=== PATIENT | male | born 1975 | race Caucasian/White ===

== ENCOUNTER 2018-05-17 23:35 | Emergency (ER) | payer SELFPAY ==
[2018-05-17] MEDS ORDERED: IBUPROFEN 800 MG TAB PO ONE (23:55)
[2018-05-17] MEDS ORDERED: BUPIVACAINE 0.5% INJ 50ML VIAL INFIL ONE (23:55)
[2018-05-17] MEDS ORDERED: PENICILLIN VK 250 MG TAB PO SCH (23:55)
--- NOTE | 2018-05-17 23:56 | ER Report ---
History and Physical Time Seen By MD: 23:45 Hx. of Stated Complaint: PATIENT COMPLAINS OF RIGHT EAR PAIN THAT HE STATES IS CAUSED FROM A TOOTH ABCESS. PAIN STARTED APPROX 3 HOURS AGO HPI/ROS CHIEF COMPLAINT: Tooth Pain HISTORY OF PRESENT ILLNESS: Patient complains of sudden onset tooth pain this afternoon. He did not bite or chew anything or break dentition. He believes this is dental abscesses he has had multiple in past. He has poor dentition and is tobacco user. He does not currently have a dentist. He has had no fevers or chills. He has severe pain in right lower posterior mandible. He has tried ibuprofen without relief. REVIEW OF SYSTEMS: Constitutional: No fever, no chills. Eyes: No discharge. ENT: above Cardiovascular: No chest pain, no palpitations. Respiratory: No cough, no shortness of breath. Gastrointestinal: No abdominal pain, no vomiting. Musculoskeletal: No back pain. Skin: No rashes. Neurological: headache due to radiation of pain to r ear, r side of head Remainder of the 14 system rev: Yes Allergies: Coded Allergies: No Known Drug Allergies (Unverified , 05/17/18) Home Meds Active Scripts Penicillin V Potassium 500 Mg Tab (PENICILLIN V POTASSIUM 500 MG TAB) 500 Mg Tablet, 500 MG PO BID for 7 Days, #14 TAB Prov:GILLES ROTHMAN MD 05/18/18 Constitutional Vital Sign - Last 24 Hours 05/17/18 05/17/18 05/18/18 05/18/18 23:38 23:38 00:00 00:05 Pulse 99 Resp 17 B/P (MAP) 129/106 129/106 (114) 112/83 (93) Pulse Ox 92 97 05/18/18 05/18/18 00:30 00:40 Pulse 79 B/P (MAP) 105/83 (90) Pulse Ox 92 Physical Exam General Appearance: The patient is alert, has no immediate need for airway protection and no signs of toxicity. Eyes: Pupils equal and round no pallor or injection. ENT, Mouth: Mucous membranes are moist. Poor dentition; multiple missing teeth. Tooth #31 is necrotic and tender to percussion. No surrounding fluctuance. Respiratory: There are no retractions, lungs are clear to auscultation. Cardiovascular: Regular rate and rhythm. Neurological: alert, moves all ext Skin: Warm and dry, no rashes. Musculoskeletal no injury DIFFERENTIAL DIAGNOSIS: After history and physical exam differential diagnosis was considered for dental infection, abcess, pain from dental brandy. Medical Decision Making ED Course/Re-evaluation ED Course I do not palpate abscess, however patient has significant dental caries and I believe benefit of antibiotics outweighs risk. Patient tolerates inferior alveolar nerve block well and has no pain afterwards. We'll discharge with penicillin. First dose administered in the emergency department Procedure I performed a inferior alveolar nerve block on patient. After discussion of risk and benefits I obtained verbal consent. I administered 1.5 mL's of a 50% solution of 0.5% bupivacaine and 1% lidocaine into the right inferior alveolar foramen. Patient tolerates this very well and has complete pain relief a fterwards. No complications. Decision to Disposition Date: May 18, 2018 Decision to Disposition Time: 00:45 Depart Departure Latest Vital Signs Vital Signs Date Time Temp Pulse Resp B/P (MAP) Pulse Ox O2 Delivery O2 Flow Rate FiO2 05/18/18 00:40 79 92 05/18/18 00:30 105/83 (90) 05/17/18 23:38 17 Impression: Primary Impression: Dental infection Condition: Improved Disposition: HOME OR SELF-CARE New Scripts Penicillin V Potassium 500 Mg Tab (PENICILLIN V POTASSIUM 500 MG TAB) 500 Mg Tablet 500 MG PO BID for 7 Days, #14 TAB Prov: GILLES ROTHMAN MD 05/18/18 Patient Instructions: Dental Abscess (ED) GILLES ROTHMAN MD May 17, 2018 23:56
[2018-05-18 00:30] VITALS: BP 105/83
[2018-05-18] MEDS ORDERED: PENI-24 PO (00:48)
[2018-05-18] MEDS ORDERED: IBUPROFEN 600 MG TAB TH PO ONE (00:50)
== END 2018-05-18 00:57 | disposition home or self-care (01) ==
LOC: ER 23:42
DX: K02.9 Dental caries, unspecified (principal); K08.89 Other specified disorders of teeth and supporting structures
CPT/HCPCS: 64400; 99283; D9110